=== PATIENT | female | born 1945 | race Caucasian/White ===

== ENCOUNTER 2023-09-07 19:14 | Emergency (ER) | payer OTHER ==
[~2023-09-07] VITALS: Ht 165.1 cm; Wt 77.1 kg
[~2023-09-07 19:14] MED LIST: CYCL10 PO; ESTNOR PO; FURO40 PO; HYDACE5 PO; MONT10T PO; MULVITMINF PO; NAPR500 PO; OSTEOBIFLEX; POTCHL20ER PO
[2023-09-07 19:17] VITALS: BP 135/68
== END 2023-09-07 21:12 | disposition home or self-care (01) ==
LOC: ER 19:14
DX: S42.211A Unspecified displaced fracture of surgical neck of right humerus, initial encounter for closed fracture (principal); W01.10XA Fall on same level from slipping, tripping and stumbling with subsequent striking against unspecified object, initial encounter; Z79.899 Other long term (current) drug therapy; J45.909 Unspecified asthma, uncomplicated
CPT/HCPCS: 73030; 73502; 99283-25; A9270

== ENCOUNTER 2024-08-07 08:08 | Day surgery (SDC) | payer OTHER ==
[2024-08-07] VITALS (13 sets, daily range): BP systolic 99–145; BP diastolic 56–69
[~2024-08-07] VITALS: Ht 162.6 cm; Wt 78.2 kg
[~2024-08-07 08:08] MED LIST changes: +Acetaminophen 500 MG Tab PO SCH; +CALCIUM 250-D1 EAC1 PO; +CeFAZolin Sodium 2,000 MG in NS 100 ML IV SCH; +Chlorhexidine Mouth Care 15 ML UDC MT SCH; +Lactated Ringer's 1,000 ML IV SCH; -OSTEOBIFLEX; +OSTEOBIFLEX PO; +OxyCODONE HCL 10 MG TABCR PO SCH; +Ropivacaine 0.5% HCl/Pf 123.125 MG,EPINEPHrine HCL 0.25 MG,Ketorolac Tromethamine 15 MG... INFIL SCH; +Tranexamic Acid 100 ML IV SCH; +Vancomycin HCL 1,000 MG in NS 250 ML IV SCH
--- NOTE | 2024-08-07 09:38 | NUR ---
History, Chart, Medications and Allergies reviewed before start of procedure. Pre-Op teaching done. Pt verbalizes understanding. Patient confirms NPO status and agrees with scheduled surgery. PT REMOVED GLASSES AND GAVE TO SPOUSE. PT CLOTHES IN BELONGINGS BAG AND PLACED UNDER BED.
[2024-08-07] MEDS ORDERED: FLU VACC TS2024-25(6MOS UP)/PF 45 MCG/0.5 ML SYRINGE IM SCH (10:25)
[2024-08-07] MEDS ORDERED: Vancomycin HCl 1000 MG ADDvantage ONE (10:25)
[2024-08-07] MEDS ORDERED: DiphenhydrAMINE HCL 25 MG Cap PO PRN (10:25)
[2024-08-07] MEDS ORDERED: Bisacodyl 10 MG Supp PR PRN (10:25)
[2024-08-07] MEDS ORDERED: HYDROmorphone HCl/Pf 1MG SYR IV PRN (10:25)
[2024-08-07] MEDS ORDERED: OxyCODONE HCL 5 MG TAB PO PRN ×2 (10:30)
[2024-08-07] MEDS ORDERED: Magnesium Hydroxide Conc 10 ML UDC PO PRN (10:30)
[2024-08-07] MEDS ORDERED: Lactated Ringer's 1,000 ML IV SCH (10:30)
[2024-08-07] MEDS ORDERED: Metoclopramide HCl 5MG / ML 2ML Vial IV PRN (10:30)
[2024-08-07] MEDS ORDERED: Promethazine HCl 25 MG Tab PO PRN (10:30)
[2024-08-07] MEDS ORDERED: Ondansetron HCl 2 MG / ML 2ML Vial IV PRN (10:30)
[2024-08-07] MEDS ORDERED: EpiNEPhrine 1 MG/1 ML 1ML Vial ONE (10:37)
[2024-08-07] MEDS ORDERED: Dexamethasone Sod Phos 10 MG/ML 1ML VIAL ONE (10:55)
[2024-08-07] MEDS ORDERED: Phenylephrine HCl 10mg/ml 1 ml Vial ONE (11:03)
[2024-08-07] MEDS ORDERED: Ondansetron HCl 2 MG / ML 2ML Vial ONE (11:52)
[2024-08-07] MEDS ORDERED: propofoL 20 ML IV ONE (12:03)
--- NOTE | 2024-08-07 14:21 | NUR ---
PT ARRIVED TO UNIT FROM PACU A&OX4 UPON ARRIVAL. [employer] [place]. HAS HEARING AIDS IN PERSONAL BELONGINGS WELL GLASSES. VSS. DENIES PAIN. NUMB FROM KNEE DOWN BUT STARTING TO BE ABLE TO LIFT LEGS OFF BED. FRANSISCO WRAP TO R KNEE CDI. ORIENTED TO USE OF CALL LIGHT, WHICH IS IN REACH. SPOUSE BEDSIDE. SNACKS/WATER PROVIDED.
[2024-08-07] MEDS ORDERED: Acetaminophen 500 MG Tab PO SCH (16:00)
--- NOTE | 2024-08-07 17:24 | NUR ---
SUMMARY NO ACUTE CHANGES SINCE ARRIVIING TO UNIT FROM PACU. PT DENIES PAIN, STATING STARTING TO FEEL "DISCOMFORT" BUT DENIES NEED FOR PAIN PILL AT THIS TIME. EDUCATED PT ON NOT WAITING TOO LONG TO TAKE PAIN MEDICATION; PT VERBALIZED UNDERSTANDIING. WORKED WITH THERAPY AND VOIDED. PT SITTING UP IN RECLINER W/LEGS ELEVATED, CALL LIGHT IN REACH. SPOUSE BEDDSIDE.
[2024-08-07] MEDS ORDERED: CeFAZolin Sodium 2,000 MG in NS 100 ML IV SCH (18:00)
[2024-08-07] MEDS ORDERED: Ketorolac Tromethamine 15mg Vial IV SCH (18:00)
[2024-08-07] MEDS ORDERED: Docusate Sodium 100 MG Cap PO SCH (21:00)
[2024-08-07] MEDS ORDERED: Vancomycin HCL 1,000 MG in NS 250 ML IV SCH (22:00)
[2024-08-08 00:01] VITALS: BP 109/51
[2024-08-08 04:40] VITALS: BP 111/58
[2024-08-08 04:46] LABS: BASOPHILS ABSOLUTE AUTO 0.01 K/mm3 (0.00-0.23); BASOPHILS PERCENT AUTO 0 % (0-2); EOSINOPHILS PERCENT AUTO 0 % (0-6); Hematocrit 30.8 % (33.0-51.0); Hemoglobin 10.2 g/dL (11.5-16.0); IMMATURE GRAN ABSOLUTE AUTO 0.03 K/mm3 (0.00-0.10); IMMATURE GRAN PERCENT AUTO 0 % (0-1); LYMPHOCYTES ABSOLUTE AUTO 0.85 K/mm3 (0.84-5.20); LYMPHOCYTES PERCENT AUTO 9 % (21-46); MONOCYTES ABSOLUTE AUTO 0.61 K/mm3 (0.16-1.47); MONOCYTES PERCENT AUTO 7 % (4-13); Mean Corpuscular HGB 30.5 pg (26.0-34.0); Mean Corpuscular HGB Conc 33.1 g/dL (31.5-36.5); Mean Corpuscular Volume 92 fL (80-100); Mean Platelet Volume 9.2 fL (9.1-12.4); NEUTROPHILS ABSOLUTE AUTO 7.65 K/mm3 (1.96-9.15); NEUTROPHILS PERCENT AUTO 84 % (41-73); Platelet Count 138 K/mm3 (150-400); RDW Coefficient Variation 13.4 % (11.7-14.2); RDW Standard Deviation 45.9 fL (35.1-46.3); Red Blood Cell Count 3.34 M/mm3 (3.80-5.20); White Blood Cell Count 9.15 K/mm3 (4.00-11.30)
[2024-08-08 05:18] LABS: Bun/Creatinine Ratio 18.4 (12.0-20.0); Calcium, Blood 8.5 mg/dL (8.5-10.1); Creatinine, Blood 0.65 mg/dL (0.40-1.00); Potassium, Blood 4.3 mmol/L (3.5-5.5)
--- NOTE | 2024-08-08 05:18 | NUR ---
SHIFT SUMMARY PT POD O RIGHT TOTAL KNEE, PT HAS RESTED T/O THE NIGHT. PT AMBULATING, TOLERATING PO INTAKE. SURGICAL SITE WNL. VITALS STABLE. PT PAIN HAS BEEN MINIMAL MANAGED WITH MEDS PER EMAR. NO ACUTE CHANGES OVERNIGHT. PLAN IS FOR DISCHARGE TODAY. BED IN LOWEST POSITION, CALL LIGHT WITHIN REACH.
[2024-08-08 07:23] VITALS: BP 112/72
[2024-08-08] MEDS ORDERED: ASPI81CH PO (07:45)
[2024-08-08] MEDS ORDERED: OXAYDO5 M1 PO (07:45)
[2024-08-08] MEDS ORDERED: PROM25 PO (07:46)
[2024-08-08] MEDS ORDERED: SULTRIDS PO (07:46)
[2024-08-08] MEDS ORDERED: Multivitamins 1 Tab PO SCH (09:00)
[2024-08-08] MEDS ORDERED: Furosemide 40 MG Tab PO SCH (09:00)
[2024-08-08] MEDS ORDERED: Montelukast Sodium 10 MG Tab PO SCH (09:00)
[2024-08-08] MEDS ORDERED: Trimethoprim/Sulfamethoxazole DS Tab PO SCH ×2 (09:00)
[2024-08-08] MEDS ORDERED: Calcium 500 MG/Vit D 200 Units Tab PO SCH (09:00)
[2024-08-08] MEDS ORDERED: Potassium Chloride 20 MEQ TabCR PO SCH (09:00)
[2024-08-08] MEDS ORDERED: Aspirin 81 MG Chew PO SCH (09:00)
[2024-08-08] MEDS ORDERED: Glucosamine Sulfate 500 MG Cap PO SCH (09:00)
[2024-08-08 11:01] VITALS: BP 110/48
== END 2024-08-08 11:14 | disposition home or self-care (01) ==
LOC: ORSCMMR 08:08 → ORD 11:00 → ORSCMMR 11:00 → SURS 14:01 → ORSCMMR 08-08 11:14
PROVIDERS: Orthopaedic Surgery
PROC: 0SRC0JA Replacement of Right Knee Joint with Synthetic Substitute, Uncemented, Open Approach (ICD-10-PCS; principal; 2024-08-07 11:00)
DX: M17.11 Unilateral primary osteoarthritis, right knee (principal); Z79.899 Other long term (current) drug therapy
CPT/HCPCS: 36415; 73560-RT; 80048; 83735; 85025; 97110; 97116; 97162; 97530; A9270; C1713; C1776; J0171; J0690; J0735; J1100; J1885; J2371; J2405; J2704; J2795; J3370; J7050; J7120

== ENCOUNTER 2025-03-06 07:30 | Day surgery (SDC) | payer OTHER ==
[~2025-03-06] VITALS: Ht 162.6 cm; Wt 77.5 kg
[~2025-03-06 07:30] MED LIST changes: +ASPI81CH PO; -Acetaminophen 500 MG Tab PO SCH; -CeFAZolin Sodium 2,000 MG in NS 100 ML IV SCH; -Chlorhexidine Mouth Care 15 ML UDC MT SCH; -Lactated Ringer's 1,000 ML IV SCH; +Lidocaine HCl/Pf 1% 5 ML VIAL ONE; +OXAYDO5 M1 PO; -OxyCODONE HCL 10 MG TABCR PO SCH; +PROM25 PO; +Povidone-Iodine 450 DROP/30 ML Solution ONE; -Ropivacaine 0.5% HCl/Pf 123.125 MG,EPINEPHrine HCL 0.25 MG,Ketorolac Tromethamine 15 MG... INFIL SCH; +SULTRIDS PO; +Tetracaine HCl/Pf 0.5% Opth Soln 4 ml ONE; -Tranexamic Acid 100 ML IV SCH; +Triamcinolone Inj Susp 40 MG / ML 1ML Vial ONE; -Vancomycin HCL 1,000 MG in NS 250 ML IV SCH
[2025-03-06] MEDS ORDERED: Ondansetron 4 MG SoluTab MM PRN ×2 (07:50→08:50)
[2025-03-06] MEDS ORDERED: Diazepam 5 MG Tab ONE (08:08)
[2025-03-06] MEDS ORDERED: Diazepam 2 MG Tab ONE (08:08)
--- NOTE | 2025-03-06 08:24 | NUR ---
03/06/25 0824 Barbara Mojica INITIAL ANXIETY ASSESSMENT PER BRIAN,RN WAS 02/27
[2025-03-06] MEDS ORDERED: Balanced Salt Epinephrine Irrigation Solution 500 mL IR SCH ×2 (08:45)
[2025-03-06] MEDS ORDERED: Povidone-Iodine 450 DROP/30 ML Solution LEFTEYE SCH (08:50)
[2025-03-06] MEDS ORDERED: diazePAM 2 MG,diazePAM 5 MG PO SCH (08:50)
[2025-03-06] MEDS ORDERED: Moxifloxacin HCL 0.5 MG/0.1 ML 0.4MLSYR LEFTEYE SCH (08:50)
[2025-03-06] MEDS ORDERED: PHENYLEPHRINE\\TROPICAMIDE\\TETRACAINE OPHTHALMIC DILATING SOLN LEFTEYE PRN (08:50)
[2025-03-06] MEDS ORDERED: Diazepam 2 MG Tab PO PRN (08:50)
[2025-03-06] MEDS ORDERED: Triamcinolone Inj Susp 40 MG / ML 1ML Vial INJ SCH (08:50)
[2025-03-06] MEDS ORDERED: Lidocaine HCl/Pf 1% 5 ML VIAL XX SCH (08:50)
--- NOTE | 2025-03-06 08:57 | NUR ---
03/06/25 0857 Sophia Torres BP-140/74 P-74 SPO2 100% 10L BLOW BY O2
[2025-03-06 09:17] VITALS: BP 145/82
--- NOTE | 2025-03-06 09:21 | NUR ---
03/06/25 0921 Alisa Braun BROUGHT TO BEDSIDE
[2025-03-07] MEDS ORDERED: Diazepam 2 MG Tab PO PRN (06:00)
[2025-03-07] MEDS ORDERED: Lidocaine HCl/Pf 1% 5 ML VIAL XX SCH (06:00)
[2025-03-07] MEDS ORDERED: Triamcinolone Inj Susp 40 MG / ML 1ML Vial INJ SCH (06:00)
[2025-03-07] MEDS ORDERED: Povidone-Iodine 450 DROP/30 ML Solution LEFTEYE SCH (06:00)
[2025-03-07] MEDS ORDERED: PHENYLEPHRINE\\TROPICAMIDE\\TETRACAINE OPHTHALMIC DILATING SOLN LEFTEYE PRN (06:00)
[2025-03-07] MEDS ORDERED: Moxifloxacin HCL 0.5 MG/0.1 ML 0.4MLSYR LEFTEYE SCH (06:00)
[2025-03-07] MEDS ORDERED: Balanced Salt Epinephrine Irrigation Solution 500 mL IR SCH (06:00)
[2025-03-07] MEDS ORDERED: diazePAM 2 MG,diazePAM 5 MG PO SCH (06:00)
== END 2025-03-06 09:32 | disposition home or self-care (01) ==
LOC: ORSCSDS 07:30
PROVIDERS: Ophthalmology
PROC: 08RK3JZ Replacement of Left Lens with Synthetic Substitute, Percutaneous Approach (ICD-10-PCS; principal; 2025-03-06 09:00)
DX: H25.813 Combined forms of age-related cataract, bilateral (principal); H52.202 Unspecified astigmatism, left eye; Z79.899 Other long term (current) drug therapy
CPT/HCPCS: A9270; J2003; J3301; V2632

== ENCOUNTER 2025-03-12 06:09 | Day surgery (SDC) | payer OTHER ==
[~2025-03-12] VITALS: Ht 162.6 cm; Wt 77.4 kg
[~2025-03-12 06:09] MED LIST changes: -Lidocaine HCl/Pf 1% 5 ML VIAL ONE; -Triamcinolone Inj Susp 40 MG / ML 1ML Vial ONE
[2025-03-12] MEDS ORDERED: Diazepam 2 MG Tab ONE ×2 (06:22→06:37)
[2025-03-12] MEDS ORDERED: Diazepam 5 MG Tab ONE ×2 (06:22→06:38)
[2025-03-12] MEDS ORDERED: Triamcinolone Inj Susp 40 MG / ML 1ML Vial ONE (06:43)
[2025-03-12] MEDS ORDERED: Lidocaine HCl/Pf 1% 5 ML VIAL ONE ×2 (06:43→06:45)
--- NOTE | 2025-03-12 06:48 | NUR ---
03/12/25 0648 Earline Denton PREPARED TO GIVE PATIENT THE FIRST 5MG AND 2MG TABLETS OF VALIUM THAT WERE PULLED FROM [email or web address] BUT AFTER PUTTING THEM IN MEDICINE CUP IT WAS DISCOVERED THAT THERE WAS A LITTLE BIT OF WATER SPILLED IN TO THE MEDICINE CUP AND THE PILLS BECAME WET. THE INITIAL TABLETS OF VALIUM WERE WASTED WITH RN GABI AND NEW PILLS WERE PULLED. 7MG VALIUM PO GIVEN TO PATIENT AT 0644. PT REPORTED ANXIETY LEVEL WAS AT 3-4/10 PRIOR TO ADMINISTRATION. CONTINUOUS HR AND SPO2 MONITORING IN PLACE. WILL CONTINUE TO MONITOR PATIENT
[2025-03-12] MEDS ORDERED: Tropicamide 1% Opth Soln 15 ML BTL ONE (07:25)
--- NOTE | 2025-03-12 07:33 | NUR ---
03/12/25 0733 Lacey Latham VITALS AT 0733 BP:127/66 P:70 O2:98% 10 LITERS OF BLOW BY OXYGEN
[2025-03-12] MEDS ORDERED: Lidocaine HCl/Pf 1% 5 ML VIAL XX ONE (07:37)
[2025-03-12] MEDS ORDERED: Moxifloxacin HCL 0.5 MG/0.1 ML 0.4MLSYR RIGHTEYE ONE (07:37)
[2025-03-12] MEDS ORDERED: Balanced Salt Epinephrine Irrigation Solution 500 mL IR ONE (07:37)
[2025-03-12 07:53] VITALS: BP 134/66
--- NOTE | 2025-03-12 07:58 | NUR ---
03/12/[address] AT BEDSIDE
== END 2025-03-12 08:15 | disposition home or self-care (01) ==
LOC: ORSCSDS 06:09
PROVIDERS: Ophthalmology
PROC: 08RJ3JZ Replacement of Right Lens with Synthetic Substitute, Percutaneous Approach (ICD-10-PCS; principal; 2025-03-12 07:30)
DX: H25.811 Combined forms of age-related cataract, right eye (principal); Z96.1 Presence of intraocular lens; Z79.82 Long term (current) use of aspirin; Z79.899 Other long term (current) drug therapy
CPT/HCPCS: A9270; J2003; J3301; V2632